=== PATIENT | female | born 1970 | race Caucasian/White ===

== ENCOUNTER 2018-03-03 11:21 | Observation (INO) ==
[2018-03-03 12:40] LABS: Baso # (Auto) 0.1 th/mm3 (0.0-0.2); Baso % (Auto) 0.7 % (0.0-2.0); Eos % (Auto) 0.5 % (0.0-4.0); Hematocrit 43.3 % (35.0-46.0); Hemoglobin 15.1 gm/dL (11.6-15.3); Lymph # (Auto) 1.6 th/mm3 (1.0-4.8); Lymph % (Auto) 20.8 % (9.0-44.0); Mean Corpuscular HGB Conc 34.9 % (32.0-36.0); Mean Corpuscular Hemoglobin 30.7 pg (27.0-34.0); Mean Corpuscular Volume 88.1 fL (80.0-100.0); Mean Platelet Volume 8.1 fL (7.0-11.0); Mono # (Auto) 0.5 th/mm3 (0.0-0.9); Neut # (Auto) 5.4 th/mm3 (1.8-7.7); Platelet Count 264 th/mm3 (150-450); Red Blood Count 4.91 mil/mm3 (4.00-5.30); Red Cell Distribution Width 12.9 % (11.6-17.2); White Blood Count 7.6 th/mm3 (4.0-11.0)
[2018-03-03 12:59] LABS: Alanine Aminotransferase 25 U/L (10-53); Albumin 4.1 g/dL (3.4-5.0); Anion Gap 8 meq/L (5-15); Aspartate Aminotransferase 16 U/L (15-37); Blood Urea Nitrogen 12 mg/dL (7-18); Carbon Dioxide 25.1 meq/L (21.0-32.0); Chloride 105 meq/L (98-107); Glomerular Filtration Rate 61 mL/min (>89); Glucose,Random 99 mg/dL (74-106); Potassium 3.3 meq/L (3.5-5.1); Sodium 138 meq/L (136-145)
[2018-03-03 13:02] LABS: Alkaline Phosphatase 50 U/L (45-117); Total Protein 7.8 g/dL (6.4-8.2)
[2018-03-03 13:14] LABS: Creatine Kinase 43 U/L (26-192)
[2018-03-03] MEDS ORDERED: Sod Chloride 0.9% Inj 1,000 ML IV.SIG ONE (14:56)
[2018-03-03 15:42] LABS: ABG Base Excess -1.5 mmol/L (-2-2); ABG PCO2 30 mmHg (38-42); ABG PO2 110 mmHg (61-120)
[2018-03-03] MEDS: Potassium Chloride Inj 10 MEQ in Sod Chloride 0.9% Inj 1,000 ML IV.CONT SCH ×4 (16:45→22:02)
[2018-03-03 17:02] LABS: Thyroid Stimulating Hormone 1.24 uIU/mL (0.358-3.740)
--- NOTE | 2018-03-03 17:35 | ED ---
HPI General Chief complaint: Weakness Stated complaint: weakness/leg and arm numbness Time Seen by Provider: 03/03/18 14:56 History of Present Illness HPI Narrative: Is a 47-year-old female with a history of pots syndrome/ autonomic syncopal dysfunction, who presents today with complaints of weakness with numbness and tingling to her extremities and face. 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 She states that she became dizzy and dehydrated while performing this class. She states shortly thereafter she had to walk a long distance to get back to her car. She reports being seen down at [facility] physician lucio Coto 2 episodes. The first time they found that she was dehydrated and gave her IV fluids. She states that she still felt weak and "heavy". She states that when she returned, they rechecked her kidney function and found that she was no longer dehydrated. She reports that she still feels this way and is concerned that this may be a return of her pots syndrome. Related Data Home Medications Medication Instructions Recorded Confirmed multivitamin 5 ml PO DAILY 03/03/18 03/03/18 Allergies Allergy/AdvReac Type Severity Reaction Status Date / Time ciprofloxacin Allergy Severe Anaphylaxis Verified 03/03/18 11:32 diphenhydramine Allergy Severe TACHYCARDIA Verified 03/03/18 11:32 Quinolones Allergy Severe AUTONOMIC Verified 03/03/18 13:55 DYSREFLEXIA Review of Systems Except as stated in HPI: all other systems reviewed are negative Constitutional Denies chills and Denies fever(s) Eyes Denies blurry vision and Denies diplopia ENT Reports dry mouth and Denies disequilibrium Cardiovascular Denies chest pain, Reports palpitations and Denies dyspnea Respiratory Denies chest congestion and Denies cough Gastrointestinal Denies abdominal pain, Denies nausea and Denies vomiting Genitourinary Reports system reviewed and no additional complaints, except as docu and Denies dysuria Musculoskeletal Denies limited range of motion, Reports muscle weakness (Generalized), Reports numbness, Reports tingling and Reports other ("Heaviness" to her muscles.) Integumentary/Breasts Reports system reviewed and no additional complaints, except as docu Neurologic Reports as per HPI [facility] Medical History Medical History Endometriosis (Acute) History of hysterectomy (Acute) Hypothyroidism (Acute) Mitral valve prolapse (Acute) Thyroid nodule (Acute) Social History Social History Substance History: No History of Abuse Smoking Status: Never smoker How Often Do You Have a Drink Containing Alcohol: Never Recent Travel in [facility] within the Last 8 Weeks: No Recent Out of Country Travel within the Last 8 Weeks: No Immunization History Tetanus Immunization: <5 Years Hx Influenza Vaccine This Season: No Exam Narrative Exam Narrative: GENERAL: Well-developed well-nourished female who appears anxious in no acute respiratory distress. SKIN: Focused skin assessment warm/dry. HEAD: Atraumatic. Normocephalic. EYES: Pupils equal and round. No scleral icterus. No injection or drainage. ENT: No nasal bleeding or discharge. Mucous membranes pink and moist. NECK: Trachea midline. Supple. CARDIOVASCULAR: Regular rate and rhythm with a rate in 95. No murmur appreciated. RESPIRATORY: No accessory muscle use. Clear to auscultation. Breath sounds equal bilaterally. GASTROINTESTINAL: Abdomen soft, non-tender, nondistended. Hepatic and splenic margins not palpable. MUSCULOSKELETAL: No obvious deformities. No clubbing. No cyanosis. No edema. NEUROLOGICAL: Awake and alert and anxious. No obvious cranial nerve deficits. Motor grossly within normal limits. Normal speech. Course Initial Documented Vital Signs Temperature 98.5 F 03/03/18 11:27 Pulse Rate 78 03/03/18 11:27 Respiratory Rate 18 03/03/18 11:27 Blood Pressure 120/56 L 03/03/18 11:27 Pulse Oximetry 99 03/03/18 11:27 Last Documented Vital Signs Temperature 98.5 F 03/03/18 11:27 Pulse Rate 70 03/03/18 16:00 Respiratory Rate 16 03/03/18 16:00 Blood Pressure 104/55 L 03/03/18 16:00 Pulse Oximetry 100 03/03/18 16:00 Medical Decision Making [facility] Narrative Medical decision making narrative: 47-year-old female with a history of pots syndrome, autonomic dysreflexia, presents here with "heaviness to her muscles". 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 She states she did not hydrate well. She states that she was seen and evaluated at [facility] in the [facility] where they found her to be dehydrated. She reports they gave her 2 L of IV fluids. They discharged her home. She states she returned because she was still feeling symptomatic. At that time they offered to do a CAT scan and further workup and she refused. She is back here again today with the same symptoms. She was noted to be hypokalemic. She has been transfused 2 units/liters of IV fluid with 10 mEq of potassium chloride. Patient still states that she does not feel normal. She is extremely anxious and concerned that this may be recurrence of her autonomic dysreflexia. Given this her third visit in 1 week and no clear etiology of her symptoms, she will be admitted for observation and a neuro consult. The patient does have a neurologist that treated her and diagnosed her autonomic dysreflexia. His partner is acquisitions editor for consultation and will be consulted. Differential Diagnosis Differential Diagnosis: Metabolic derangement versus dehydration versus electrolyte abnormality versus atypical Stout presentation. Lab Data Result diagrams: 03/03/18 12:00 03/03/18 12:00 Lab Results 03/03/18 03/03/18 03/03/18 Range/Units 12:00 12:00 15:30 WBC 7.6 (4.0-11.0) th/mm3 RBC 4.91 (4.00-5.30) mil/mm3 Hgb 15.1 (11.6-15.3) gm/dL Hct 43.3 (35.0-46.0) % MCV 88.1 (80.0-100.0) fL MCH 30.7 (27.0-34.0) pg MCHC 34.9 (32.0-36.0) % RDW 12.9 (11.6-17.2) % Plt Count 264 (150-450) th/mm3 MPV 8.1 (7.0-11.0) fL Neut % (Auto) 71.0 H (16.0-70.0) % Lymph % (Auto) 20.8 (9.0-44.0) % Russell % (Auto) 7.0 (0.0-8.0) % Eos % (Auto) 0.5 (0.0-4.0) % Baso % (Auto) 0.7 (0.0-2.0) % Neut # (Auto) 5.4 (1.8-7.7) th/mm3 Lymph # (Auto) 1.6 (1.0-4.8) th/mm3 Russell # (Auto) 0.5 (0.0-0.9) th/mm3 Eos # (Auto) 0.0 (0.0-0.4) th/mm3 Baso # (Auto) 0.1 (0.0-0.2) th/mm3 WBC Differential . Differential Comment Auto diff final Puncture Site Patient Temperature O2 Saturation (90-100) % ABG pH (7.380-7.420) ABG pCO2 (38-42) mmHg ABG pO2 (61-120) mmHg ABG HCO3 (22-26) mmol/L ABG O2 Content (12.0-20.0) Vol % ABG Base Excess (-2-2) mmol/L ABG Methemoglobin (0-2) % Casper Test Hemoglobin (12.0-16.0) G/DL Carboxyhemoglobin (0-4) % O2 Delivery Device Inspired O2 % Critical Value Sodium 138 (136-145) meq/L Potassium 3.3 L (3.5-5.1) meq/L Chloride 105 (98-107) meq/L Carbon Dioxide 25.1 (21.0-32.0) meq/L Anion Gap 8 (5-15) meq/L BUN 12 (7-18) mg/dL Creatinine 0.98 (0.50-1.00) mg/dL Estimated GFR 61 L (>89) mL/min Random Glucose 99 (74-106) mg/dL Calcium 9.0 (8.5-10.1) mg/dL Total Bilirubin 1.4 H (0.2-1.0) mg/dL AST 16 (15-37) U/L ALT 25 (10-53) U/L Alkaline Phosphatase 50 (45-117) U/L Total Creatine Kinase 43 44 (26-192) U/L Total Protein 7.8 (6.4-8.2) g/dL Albumin 4.1 (3.4-5.0) g/dL TSH 1.240 (0.358-3.740) uIU/mL 03/03/18 Range/Units 15:34 WBC (4.0-11.0) th/mm3 RBC (4.00-5.30) mil/mm3 Hgb (11.6-15.3) gm/dL Hct (35.0-46.0) % MCV (80.0-100.0) fL MCH (27.0-34.0) pg MCHC (32.0-36.0) % RDW (11.6-17.2) % Plt Count (150-450) th/mm3 MPV (7.0-11.0) fL Neut % (Auto) (16.0-70.0) % Lymph % (Auto) (9.0-44.0) % Russell % (Auto) (0.0-8.0) % Eos % (Auto) (0.0-4.0) % Baso % (Auto) (0.0-2.0) % Neut # (Auto) (1.8-7.7) th/mm3 Lymph # (Auto) (1.0-4.8) th/mm3 Russell # (Auto) (0.0-0.9) th/mm3 Eos # (Auto) (0.0-0.4) th/mm3 Baso # (Auto) (0.0-0.2) th/mm3 WBC Differential Differential Comment Puncture Site Right radial Patient Temperature 98.6 O2 Saturation 97 (90-100) % ABG pH 7.47 H (7.380-7.420) ABG pCO2 30 L (38-42) mmHg ABG pO2 110 (61-120) mmHg ABG HCO3 22 (22-26) mmol/L ABG O2 Content 19.8 (12.0-20.0) Vol % ABG Base Excess -1.5 (-2-2) mmol/L ABG Methemoglobin 0.5 (0-2) % Casper Test Present Hemoglobin 14.4 (12.0-16.0) G/DL Carboxyhemoglobin 0.9 (0-4) % O2 Delivery Device Room air Inspired O2 21 % Critical Value No Sodium (136-145) meq/L Potassium (3.5-5.1) meq/L Chloride (98-107) meq/L Carbon Dioxide (21.0-32.0) meq/L Anion Gap (5-15) meq/L BUN (7-18) mg/dL Creatinine (0.50-1.00) mg/dL Estimated GFR (>89) mL/min Random Glucose (74-106) mg/dL Calcium (8.5-10.1) mg/dL Total Bilirubin (0.2-1.0) mg/dL AST (15-37) U/L ALT (10-53) U/L Alkaline Phosphatase (45-117) U/L Total Creatine Kinase (26-192) U/L Total Protein (6.4-8.2) g/dL Albumin (3.4-5.0) g/dL TSH (0.358-3.740) uIU/mL Discharge Plan Discharge Disposition Patient Disposition: 30 Still Patient Discharge Details Diagnosis: Weakness, Hypokalemia, At risk for autonomic dysreflexia Physicians Team ED Provider: Paco Krueger Rxs /Orders / Referrals /Forms Prescriptions: No Action multivitamin Liquid 5 ml PO DAILY RF: 0 Status ED Status: With Doctor
[2018-03-03] MEDS: Sod Chloride 0.9% Inj 1,000 ML IV.CONT SCH (21:04)
--- NOTE | 2018-03-03 23:31 | US ---
EXAM DATE: 03/03/2018 11:23 PM EDT AGE/SEX: 47 years / Female INDICATIONS: Syncope. CLINICAL DATA: This is the patient's initial encounter. Patient reports that signs and symptoms have been present for 1 day and indicates a pain score of 0/10. MEDICAL/SURGICAL HISTORY: Hypothyroidism. Endometriosis. Mitral valve prolapse. Hysterectomy. COMPARISON: No prior exams available for comparison. VELOCITY PARAMETERS: ICA/CCA Ratio: Right 0.9 , Left 1.5 ICA: Right 93 cm/sec, Left 103 cm/sec CCA: Right 109 cm/sec, Left 67 cm/sec ECA: Right 108 cm/sec, Left 86 cm/sec Vertebral: Right 55 cm/sec antegrade, Left 61 cm/sec antegrade FINDINGS: Right Carotid: No significant plaque is visualized.The waveforms are within normal limits. Left Carotid: No significant plaque is visualized. The waveforms are within normal limits. Other: None. CONCLUSION: Negative exam with no plaque or stenosis. Electronically signed by: Leodan Reese MD 03/03/2018 11:30 PM EDT
[2018-03-04] MEDS ORDERED: predniSONE 10 MG Tablet PO ONE (03:54)
[2018-03-04 04:49] LABS: Baso % (Auto) 0.5 % (0.0-2.0); Eos # (Auto) 0.1 th/mm3 (0.0-0.4); Eos % (Auto) 1.5 % (0.0-4.0); Hematocrit 36.1 % (35.0-46.0); Hemoglobin 12.5 gm/dL (11.6-15.3); Lymph # (Auto) 2.6 th/mm3 (1.0-4.8); Lymph % (Auto) 39.4 % (9.0-44.0); Mean Corpuscular HGB Conc 34.6 % (32.0-36.0); Mean Corpuscular Hemoglobin 30.2 pg (27.0-34.0); Mean Corpuscular Volume 87.3 fL (80.0-100.0); Mean Platelet Volume 7.7 fL (7.0-11.0); Mono # (Auto) 0.7 th/mm3 (0.0-0.9); Mono % (Auto) 10.1 % (0.0-8.0); Neut # (Auto) 3.2 th/mm3 (1.8-7.7); Neut % (Auto) 48.5 % (16.0-70.0); Platelet Count 209 th/mm3 (150-450); Red Blood Count 4.13 mil/mm3 (4.00-5.30); Red Cell Distribution Width 12.5 % (11.6-17.2); White Blood Count 6.5 th/mm3 (4.0-11.0)
[2018-03-04 05:24] LABS: Calcium 7.5 mg/dL (8.5-10.1); Carbon Dioxide 21.1 meq/L (21.0-32.0); Potassium 3.8 meq/L (3.5-5.1); Thyroid Stimulating Hormone 2.16 uIU/mL (0.358-3.740)
[2018-03-04 08:22] LABS: Amphetamine Screen,Urine Neg (Neg); Barbiturate Screen,Urine Neg (Neg); Cannabinoid Screen,Urine Neg (Neg); Cocaine Screen,Urine Neg (Neg)
[2018-03-04 08:24] LABS: Opiate Screen,Urine Neg (Neg)
--- NOTE | 2018-03-04 08:52 | ECG ---
Date Performed: 03/03/2018 Time Performed: 11:44:15 PTAGE: 47 years EKG: Sinus rhythm POSSIBLE RIGHT VENTRICULAR CONDUCTION DELAY SEPTAL MYOCARDIAL INFARCTION ABNORMAL ECG NO PREVIOUS TRACING DOCTOR: Rom Zapata Interpretating Date/Time 03/04/2018 08:50:59
[2018-03-04] MEDS: Sod Chloride 0.9% Inj 1,000 ML IV.CONT SCH ×2 (09:17→18:05)
--- NOTE | 2018-03-04 15:24 | ECHRPT ---
Indication: cva/tia CONCLUSIONS The left ventricular systolic function is normal with an estimated ejection fraction in the range of 60-65%. Normal left ventricular size. Wall thickness is normal. No regional wall motion abnormalities are present. Trivial pulmonary valve regurgitation. BP: / HR: Rhythm: Sinus Technical Quality:Good FINDINGS LEFT VENTRICLE The left ventricular systolic function is normal with an estimated ejection fraction in the range of 60-65%. Normal left ventricular size. Wall thickness is normal. No regional wall motion abnormalities are present. RIGHT VENTRICLE Normal right ventricular size and systolic function. LEFT ATRIUM The left atrial size is normal. RIGHT ATRIUM The right atrial size is normal. ATRIAL SEPTUM Normal atrial septal thickness without atrial level shunting by limited color doppler interrogation. AORTA The aortic root and proximal ascending aorta are normal in size on limited imaging. MITRAL VALVE Structurally normal mitral valve. No mitral valve stenosis or regurgitation. AORTIC VALVE Trileaflet aortic valve. No aortic valve stenosis or regurgitation. TRICUSPID VALVE Structurally normal tricuspid valve. No tricuspid valve stenosis or regurgitation. PULMONARY VALVE Trivial pulmonary valve regurgitation. VESSELS The inferior vena cava is normal in size. PERICARDIUM No pericardial effusion. Malinda Lou MD, FACC (Electronically Signed) Final Date:04 March 2018 15:23
[2018-03-04] MEDS ORDERED: Baclofen 10 MG Tablet PO ONE (15:33)
--- NOTE | 2018-03-04 15:33 | P.HP ---
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 Worried about the she may have had pots syndrome again. States that she has pots syndrome before from taking antibiotics Levaqjose luis Cipro and has followed Dr. Briseno in the outpatient. States that he took some time for the symptoms to have resolved and now worried about having almost the same symptom. Discussed with patient that sometimes pots syndrome can occur with hypovolemia, dehydration and she has experienced. Patient states that she has thyroid nodule in is afraid of doing a CAT scan of her head that she refused it yesterday. Patient also states that she has been doing holistic medication and doing organic food intake and the only medication she has for home is multivitamins. Denies visual changes. However she reports that when she was outside in the numbness and tingling happened she has been seeing park in her eyes and had blurry vision. States that her vision right now is okay. Denies pain and discomfort. Denies SOB/ dyspnea. Denies chest pain, palpitations, headaches. Denies fevers, chills, n/v/d. Denies hematuria, dysuria. - Diagnosis (1) Weakness (2) Hypokalemia (3) At risk for autonomic dysreflexia Review of Systems All other systems reviewed negative except as stated in HPI [facility] - History History Provided By: Patient - Medical History Medical History: Medical History (Last Reviewed 03/04/18 @ 17:31 by Emy Boone PT) Endometriosis History of hysterectomy Hypothyroidism Mitral valve prolapse Thyroid nodule - Surgical History Surgical History: Surgical History (Last Updated 03/04/18 @ 18:18 by KIRSTEN Cheema) History of hysterectomy - Family History Family History: Family History (Last Updated 03/04/18 @ 18:19 by KIRSTEN Cheema) Mother Heart disease - Tobacco History Second Hand Smoke Exposure: No Smoking Status: Never smoker - Alcohol History How Often Do You Have a Drink Containing Alcohol: Never - Substance Use History Substance History: No History of Abuse - Travel History Recent Travel in the [place] Within the Last 8 Weeks: No Recent Travel Out of the Country Within the Last 8 Weeks: No - Immunization History Tetanus Immunization: <5 Years Hx Influenza Vaccine This Season: No Medications and Allergies Active Medications: Active Medications Sodium Chloride (Ns Inj) 1,000 mls @ 100 mls/hr IV.CONT .Q10H ESTEPHANIE Last Admin: 03/04/18 09:17 Dose: 100 mls/hr Allergies Allergy/AdvReac Type Severity Reaction Status Date / Time ciprofloxacin Allergy Severe Anaphylaxis Verified 03/03/18 11:32 diphenhydramine Allergy Severe TACHYCARDIA Verified 03/03/18 11:32 Quinolones Allergy Severe AUTONOMIC Verified 03/03/18 13:55 DYSREFLEXIA Home Medications Medication Instructions Recorded Confirmed Type multivitamin 5 ml PO DAILY 03/03/18 03/03/18 History Exam Vital signs: Vital Signs 03/03/18 16:00 03/03/18 22:10 03/03/18 22:28 Temperature 98.0 F Pulse Rate 70 73 69 Respiratory Rate 16 16 Blood Pressure 104/55 L 85/52 L 99/55 L Pulse Oximetry 100 99 03/03/18 22:36 03/04/18 00:27 03/04/18 03:43 Temperature 98.7 F Pulse Rate 78 66 Respiratory Rate 16 Blood Pressure 107/52 L 87/48 L Pulse Oximetry 100 03/04/18 08:00 03/04/18 08:03 03/04/18 08:04 Temperature 97.9 F Pulse Rate 74 79 78 Respiratory Rate 16 Blood Pressure 111/56 L 117/56 L 98/53 L Pulse Oximetry 100 03/04/18 11:57 03/04/18 11:59 03/04/18 12:00 Temperature 98.1 F Pulse Rate 75 85 92 H Respiratory Rate 16 Blood Pressure 101/58 L 100/57 L 108/55 L Pulse Oximetry 98 Intake & Output 03/03/18 03/04/18 03/04/18 18:59 06:59 18:59 Intake Total 1000 / 1000 1005 / 1005 1000 / 1000 Balance 1000 / 1000 1005 / 1005 1000 / 1000 Weight 59.874 kg 59.874 kg Intake: IV 1000 / 1000 1005 / 1005 1000 / 1000 KCl Inj 10 MEQ In NS Inj 1,000 1005 / 1005 ML @ 500 mls/hr IV.CONT .Q2H1M ESTEPHANIE Rx#:[id number] NS Inj 1,000 ML @ 100 mls/hr IV 1000 / 1000 .CONT .Q10H ESTEPHANIE Rx#:[id number] NS Inj 1,000 ML @ Wide Open IV. 1000 / 1000 SIG BOLUS ONE Rx#:[id number] Other: Date of Last Bowel Movement 03/03/18 Weight On Admission 59.874 kg Narrative: GENERAL: This is a well-nourished, well-developed patient, in no apparent distress. SKIN: Warm and dry HEENT: Normocephalic. Pupils equal round and reactive. Nose without bleeding. Airway patent. NECK: Trachea midline. No JVD. Supple. CARDIOVASCULAR: Regular rate and rhythm without murmurs, gallops, or rubs. RESPIRATORY: Clear to auscultation. Breath sounds equal bilaterally. No wheezes , rales, or rhonchi. GASTROINTESTINAL: Abdomen soft, non-tender, nondistended. Bowel Sounds normoactive x4. MUSCULOSKELETAL: Extremities without clubbing, cyanosis, or edema. NEUROLOGICAL: Awake and alert. Oriented to time, place, person. No focal neuro deficit. Cranial nerves intact. Moves all extremities. Normal speech. Results - Labs CBC & Chem 7: 03/04/18 04:30 03/04/18 04:30 Labs: Laboratory Results - last 24 hr 03/03/18 03/03/18 03/04/18 15:30 15:34 04:30 WBC RBC Hgb Hct MCV MCH MCHC RDW Plt Count MPV Neut % (Auto) Lymph % (Auto) Mccone % (Auto) Eos % (Auto) Baso % (Auto) Neut # (Auto) Lymph # (Auto) Mccone # (Auto) Eos # (Auto) Baso # (Auto) WBC Differential Differential Comment Puncture Site Right radial Patient Temperature 98.6 O2 Saturation 97 ABG pH 7.47 H ABG pCO2 30 L ABG pO2 110 ABG HCO3 22 ABG O2 Content 19.8 ABG Base Excess -1.5 ABG Methemoglobin 0.5 Casper Test Present Hemoglobin 14.4 Carboxyhemoglobin 0.9 O2 Delivery Device Room air Inspired O2 21 Critical Value No Sodium 143 Potassium 3.8 Chloride 114 H D Carbon Dioxide 21.1 Anion Gap 8 BUN 11 Creatinine 0.77 Estimated GFR 81 L Random Glucose 82 Calcium 7.5 L D Total Creatine Kinase 44 TSH 1.240 2.160 Cortisol Urine Opiates Screen Ur Barbiturates Screen Ur Amphetamines Screen U Benzodiazepines Scrn Urine Cocaine Screen U Cannabinoids Screen 03/04/18 03/04/18 03/04/18 04:30 04:30 07:53 WBC 6.5 RBC 4.13 Hgb 12.5 D Hct 36.1 MCV 87.3 MCH 30.2 MCHC 34.6 RDW 12.5 Plt Count 209 MPV 7.7 Neut % (Auto) 48.5 Lymph % (Auto) 39.4 Mccone % (Auto) 10.1 H Eos % (Auto) 1.5 Baso % (Auto) 0.5 Neut # (Auto) 3.2 Lymph # (Auto) 2.6 Mccone # (Auto) 0.7 Eos # (Auto) 0.1 Baso # (Auto) 0.0 WBC Differential . Differential Comment Auto diff final Puncture Site Patient Temperature O2 Saturation ABG pH ABG pCO2 ABG pO2 ABG HCO3 ABG O2 Content ABG Base Excess ABG Methemoglobin Casper Test Hemoglobin Carboxyhemoglobin O2 Delivery Device Inspired O2 Critical Value Sodium Potassium Chloride Carbon Dioxide Anion Gap BUN Creatinine Estimated GFR Random Glucose Calcium Total Creatine Kinase TSH Cortisol 17.4 Urine Opiates Screen Neg Ur Barbiturates Screen Neg Ur Amphetamines Screen Neg U Benzodiazepines Scrn Neg Urine Cocaine Screen Neg U Cannabinoids Screen Neg - Imaging Impressions Carotid Doppler Study 03/03/18 00:00 CONCLUSION: Negative exam with no plaque or stenosis. Caprini VTE Risk Assessment Caprini VTE Risk Assessment: No/Low Risk (score <= 1) Caprini Risk Assessment Model: Point Value = 1 Point Value = 2 Point Value = 3 Point Value = 5 Age 41-60 Minor surgery BMI > 25 kg/m2 Swollen legs Varicose veins or History of unexplained or recurrent spontaneous Oral contraceptives or hormone replacement Sepsis (< 1 month) Serious lung disease, including pneumonia (< 1 month) Abnormal pulmonary function Acute myocardial infarction Congestive heart failure (< 1 month) History of inflammatory bowel disease Medical patient at bed rest Age 61-74 Arthroscopic surgery Major open surgery (> 45 min) Laparoscopic surgery (> 45 min) Malignancy Confined to bed (> 72 hours) Immobilizing plaster cast Central venous access Age >= 75 History of VTE Family history of VTE Factor V Leiden Prothrombin [id number] Lupus anticoagulant Anticardiolipin antibodies Elevated serum homocysteine Heparin-induced thrombocytopenia Other congenital or acquired thrombophilia Stroke (< 1 month) Elective arthroplasty Hip, pelvis, or leg fracture Acute spinal cord injury (< 1 month) Prophylaxis Regimen: Total Risk Factor Score Risk Level Prophylaxis Regimen 0-1 Low Early ambulation 2 Moderate Order ONE of the following: *Sequential Compression Device (SCD) *Heparin 5000 units SQ BID 3-4 Higher Order ONE of the following medications: *Heparin 5000 units SQ TID *Enoxaparin/Lovenox 40 mg SQ daily (WT < 150 kg, CrCl > 30 mL/min) *Enoxaparin/Lovenox 30 mg SQ daily (WT < 150 kg, CrCl > 10-29 mL/min) *Enoxaparin/Lovenox 30 mg SQ BID (WT < 150 kg, CrCl > 30 mL/min) AND/OR *Sequential Compression Device (SCD) 5 or more Highest Order ONE of the following medications: *Heparin 5000 units SQ TID (Preferred with Epidurals) *Enoxaparin/Lovenox 40 mg SQ daily (WT < 150 kg, CrCl > 30 mL/min) *Enoxaparin/Lovenox 30 mg SQ daily (WT < 150 kg, CrCl > 10-29 mL/min) *Enoxaparin/Lovenox 30 mg SQ BID (WT < 150 kg, CrCl > 30 mL/min) AND *Sequential Compression Device (SCD) Assessment and Plan - Assessment (1) Weakness Code(s): R53.1 - Weakness Status: Acute (2) Hypokalemia Code(s): E87.6 - Hypokalemia Status: Acute (3) At risk for autonomic dysreflexia Code(s): Z91.89 - Other specified personal risk factors, not elsewhere classified Status: Acute - Plan 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 Autonomic disorder, pots syndrome history Dehydration, hypokalemia -IV fluids for hydration -Repeat labs reviewed within normal, CK 43 to 44 -Check hemoglobin A1c -Bili elevated 1.4, AST and ALT within normal -TSH within normal, cortisol level within normal -Protein and albumin within normal -echocardiogram showed LV function within normal EF 60-65% -Carotid ultrasound negative exam with no plaques or stenosis -PT eval and treat -Extensively with patient that if lab results and under exam is normal tomorrow plan for discharge and follow-up with Dr. Briseno in the outpatient if she continues to have numbness or tingling for evaluation of nerve dysfunction. -Suspect that this is just secondary to exercising in the heat, combination with dehydration, hypokalemia DVT prop early ambulation Code Status: Full code Discussed Condition With: Patient, , nursing Discharge Planning: Plan to DC home tomorrow if everything is improved.
[2018-03-04] MEDS ORDERED: LORazepam 0.5 MG Tablet PO ONE (15:43)
[2018-03-04 16:45] LABS: Bilirubin,Urine Negative (Negative); Clarity,Urine Clear (Clear); Color,Urine Colorless (Yellw/Straw); Glucose,Urine (UA) Negative (Negative); Leukocyte Esterase,Urine Negative (Negative); Nitrite,Urine Negative (Negative); Specific Gravity,Urine 1.006 (1.002-1.035); Squamous Epithelial Cell,Urine <1 /hpf (0-5)
[2018-03-04 18:45] LABS: Hemoglobin A1c 4.5 % (4.3-6.0)
[2018-03-04] MEDS: Sodium Chloride 0.45 % Inj 1,000 ML IV.CONT SCH (18:45)
[2018-03-04 22:23] LABS: Potassium 3.2 meq/L (3.5-5.1)
[2018-03-04 23:29] LABS: Magnesium 1.5 mg/dL (1.5-2.5)
[2018-03-05 04:28] VITALS: O2SAT 100
[2018-03-05] MEDS: Sodium Chloride 0.45 % Inj 1,000 ML IV.CONT SCH (04:40)
[2018-03-05 06:27] LABS: Baso % (Auto) 0.5 % (0.0-2.0); Eos # (Auto) 0.1 th/mm3 (0.0-0.4); Eos % (Auto) 1.4 % (0.0-4.0); Hematocrit 37.7 % (35.0-46.0); Hemoglobin 13.4 gm/dL (11.6-15.3); Lymph # (Auto) 1.8 th/mm3 (1.0-4.8); Lymph % (Auto) 32.8 % (9.0-44.0); Mean Corpuscular HGB Conc 35.4 % (32.0-36.0); Mean Corpuscular Hemoglobin 30.8 pg (27.0-34.0); Mono # (Auto) 0.6 th/mm3 (0.0-0.9); Mono % (Auto) 10.9 % (0.0-8.0); Neut % (Auto) 54.4 % (16.0-70.0); Platelet Count 229 th/mm3 (150-450); Red Blood Count 4.34 mil/mm3 (4.00-5.30); Red Cell Distribution Width 12.5 % (11.6-17.2); White Blood Count 5.6 th/mm3 (4.0-11.0)
[2018-03-05 07:07] LABS: Alanine Aminotransferase 20 U/L (10-53); Albumin 3.3 g/dL (3.4-5.0); Alkaline Phosphatase 39 U/L (45-117); Anion Gap 5 meq/L (5-15); Aspartate Aminotransferase 11 U/L (15-37); Blood Urea Nitrogen 10 mg/dL (7-18); Calcium 8.5 mg/dL (8.5-10.1); Carbon Dioxide 28.3 meq/L (21.0-32.0); Chloride 109 meq/L (98-107); Glomerular Filtration Rate 69 mL/min (>89); Glucose,Random 91 mg/dL (74-106); Magnesium 1.9 mg/dL (1.5-2.5); Potassium 3.8 meq/L (3.5-5.1); Sodium 142 meq/L (136-145); Total Protein 6.3 g/dL (6.4-8.2)
--- NOTE | 2018-03-05 08:04 | P.DS ---
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 Worried about the she may have had pots syndrome again. 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 Briseno in the outpatient. States that he took some time for the symptoms to have resolved and now worried about having almost the same symptom. Discussed with patient that sometimes pots syndrome can occur with hypovolemia, dehydration and she has experienced. Patient states that she has thyroid nodule in is afraid of doing a CAT scan of her head that she refused it yesterday. Patient also states that she has been doing holistic medication and doing organic food intake and the only medication she has for home is multivitamins. Denies visual changes. However she reports that when she was outside in the numbness and tingling happened she has been seeing park in her eyes and had blurry vision. States that her vision right now is okay. Denies pain and discomfort. Denies SOB/ dyspnea. Denies chest pain, palpitations, headaches. Denies fevers, chills, n/v/d. Denies hematuria, dysuria. 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 Patient found to have hypokalemia. This is possibly secondary to dehydration as she reports that she was exercising under the sun and has not hydrated well. She was concerned about returning of pots syndrome. Discussed extensively with patient hypovolemia could trigger pots syndrome however we have tested her for orthostatics and it was doing okay. Her labs are within normal except for hypokalemia which were replaced during her hospitalization. She had IV fluids for hydration. Her CK was reviewed and was normal, TSH was within normal, cortisol level within normal. Magnesium is also within normal. Hemoglobin A1c was 4.5. Echocardiogram showed LV function within normal EF 60-65%. Carotid ultrasound negative exam with no plaques or stenosis. Discussed extensively with patient that she will be discharged and can follow up with Dr. Briseno in the outpatient whom he previously has seen for pots syndrome if the numbness and tingling of her face and her lower extremity continues. She is ambulating in the hallway. Physical therapy has evaluated the patient does not recommend any rehabilitation for her. Discussed extensively with the patient that she would need to hydrate well when she is exercising she could have fluid and electrolyte imbalance causing her to feel weak, with numbness and tingling. Patient has met maximal benefits of hospitalization. Clinically stable for discharge. - Time Spent with Patient Total time spent providing and/or coordinating discharge services: Less than 30 minutes - Quality: VTE Deep Vein Thrombosis/Pulmonary Embolism Present on Admission: No Exam Vital signs: Vital Signs 03/04/18 11:57 03/04/18 11:59 03/04/18 12:00 Temperature 98.1 F Pulse Rate 75 85 92 H Respiratory Rate 16 Blood Pressure 101/58 L 100/57 L 108/55 L Pulse Oximetry 98 03/04/18 16:00 03/04/18 20:00 03/04/18 23:24 Temperature 97.9 F 97.9 F 98.0 F Pulse Rate 71 84 74 Respiratory Rate 16 18 16 Blood Pressure 113/55 L 124/56 L 107/56 L Pulse Oximetry 99 98 97 03/05/18 04:00 Temperature 97.5 F L Pulse Rate 67 Respiratory Rate 16 Blood Pressure 96/54 L Pulse Oximetry 100 Intake & Output 03/04/18 03/05/18 03/05/18 18:59 06:59 18:59 Intake Total 2049 0 / 0 Balance 2049 0 / 0 Intake: IV 2049 0 / 0 NS Inj 1,000 ML @ 100 mls/hr IV 2049 .CONT .Q10H [facility] Rx#:[id number] 1/2 Normal Saline Inj 1,000 ML 0 / 0 @ 100 mls/hr IV.CONT .Q10H [facility] Rx#:[id number] Other: # Voids 5 Date of Last Bowel Movement 03/03/18 03/03/18 # Bowel Movements 0 Narrative: GENERAL: This is a well-nourished, well-developed patient, in no apparent distress. SKIN: Warm and dry HEENT: Normocephalic. Pupils equal round and reactive. Nose without bleeding. Airway patent. NECK: Trachea midline. No JVD. Supple. CARDIOVASCULAR: Regular rate and rhythm without murmurs, gallops, or rubs. RESPIRATORY: Clear to auscultation. Breath sounds equal bilaterally. No wheezes , rales, or rhonchi. GASTROINTESTINAL: Abdomen soft, non-tender, nondistended. Bowel Sounds normoactive x4. MUSCULOSKELETAL: Extremities without clubbing, cyanosis, or edema. NEUROLOGICAL: Awake and alert. Oriented to time, place, person. No focal neuro deficit. Cranial nerves intact. Moves all extremities. Normal Results Procedures completed during hospitalization: none Labs on day of discharge: Labs from last 24 hours 03/05/18 03/05/18 03/04/18 05:34 05:34 21:52 WBC 5.6 RBC 4.34 Hgb 13.4 Hct 37.7 MCV 87.0 MCH 30.8 MCHC 35.4 RDW 12.5 Plt Count 229 MPV 8.0 Neut % (Auto) 54.4 Lymph % (Auto) 32.8 [place] % (Auto) 10.9 H Eos % (Auto) 1.4 Baso % (Auto) 0.5 Neut # (Auto) 3.0 Lymph # (Auto) 1.8 [place] # (Auto) 0.6 Eos # (Auto) 0.1 Baso # (Auto) 0.0 WBC Differential . Differential Comment Auto diff final Sodium 142 Potassium 3.8 Chloride 109 H Carbon Dioxide 28.3 Anion Gap 5 BUN 10 Creatinine 0.88 Estimated GFR 69 L Random Glucose 91 Hemoglobin A1c Calcium 8.5 D Magnesium 1.9 Cancelled Total Bilirubin 0.6 AST 11 L ALT 20 Alkaline Phosphatase 39 L Creatine Kinase CK-MM (CK-3) % CK-MB (CK-2) % CK-BB (CK-1) % Total Protein 6.3 L D Albumin 3.3 L D Urine Color Urine Clarity Urine pH Ur Specific [place] Urine Protein Urine Glucose (UA) Urine Ketones Urine Occult Blood Urine Nitrate Urine Bilirubin Urine Urobilinogen Ur Leukocyte Esterase Ur Squamous Epith Cells Micro UA Comment Urine Culture Comments Urine Opiates Screen Ur Barbiturates Screen Ur Amphetamines Screen U Benzodiazepines Scrn Urine Cocaine Screen U Cannabinoids Screen 03/04/18 03/04/18 03/04/18 21:52 17:15 16:48 WBC RBC Hgb Hct MCV MCH MCHC RDW Plt Count MPV Neut % (Auto) Lymph % (Auto) [place] % (Auto) Eos % (Auto) Baso % (Auto) Neut # (Auto) Lymph # (Auto) [place] # (Auto) Eos # (Auto) Baso # (Auto) WBC Differential Differential Comment Sodium Potassium 3.2 L Chloride Carbon Dioxide Anion Gap BUN Creatinine Estimated GFR Random Glucose Hemoglobin A1c 4.5 Calcium Magnesium 1.5 Total Bilirubin AST ALT Alkaline Phosphatase Creatine Kinase Pending CK-MM (CK-3) % Pending CK-MB (CK-2) % Pending CK-BB (CK-1) % Pending Total Protein Albumin Urine Color Urine Clarity Urine pH Ur Specific [place] Urine Protein Urine Glucose (UA) Urine Ketones Urine Occult Blood Urine Nitrate Urine Bilirubin Urine Urobilinogen Ur Leukocyte Esterase Ur Squamous Epith Cells Micro UA Comment Urine Culture Comments Urine Opiates Screen Ur Barbiturates Screen Ur Amphetamines Screen U Benzodiazepines Scrn Urine Cocaine Screen U Cannabinoids Screen 03/04/18 03/04/18 15:30 07:53 WBC RBC Hgb Hct MCV MCH MCHC RDW Plt Count MPV Neut % (Auto) Lymph % (Auto) [place] % (Auto) Eos % (Auto) Baso % (Auto) Neut # (Auto) Lymph # (Auto) [place] # (Auto) Eos # (Auto) Baso # (Auto) WBC Differential Differential Comment Sodium Potassium Chloride Carbon Dioxide Anion Gap BUN Creatinine Estimated GFR Random Glucose Hemoglobin A1c Calcium Magnesium Total Bilirubin AST ALT Alkaline Phosphatase Creatine Kinase CK-MM (CK-3) % CK-MB (CK-2) % CK-BB (CK-1) % Total Protein Albumin Urine Color Colorless Urine Clarity Clear Urine pH 7.0 Ur Specific [place] 1.006 Urine Protein Negative Urine Glucose (UA) Negative Urine Ketones Negative Urine Occult Blood Small H Urine Nitrate Negative Urine Bilirubin Negative Urine Urobilinogen Less than 2 Ur Leukocyte Esterase Negative Ur Squamous Epith Cells <1 Micro UA Comment Culture not ind Urine Culture Comments Culture not ind Urine Opiates Screen Neg Ur Barbiturates Screen Neg Ur Amphetamines Screen Neg U Benzodiazepines Scrn Neg Urine Cocaine Screen Neg U Cannabinoids Screen Neg - Impressions ITS Impressions Carotid Doppler Study 03/03/18 00:00 CONCLUSION: Negative exam with no plaque or stenosis. Discharge Plan - Discharge Disposition Patient Disposition: 01 Discharge Home - Discharge Condition Condition: Stable - Discharge Order Discharge Orders: Discharge Order (Routine); Ordered 03/05/18 Ordered By: Wilda Coombs - Physicians Team Attending Provider: Adrian Diez
[2018-03-05] MEDS ORDERED: Magnesium Citrate Liq 300 ML Bottle PO ONE (08:33)
[2018-03-05 08:45] VITALS: BP 104/61; PULSE 70; RESP 18; TEMP 98.1
[2018-03-10 17:54] LABS: CK-MB ND (<5); CK-MM ND (95-100)
== END 2018-03-05 10:36 | disposition home or self-care (01) ==
LOC: NEPC 11:21 → NEDA 11:21 → NEPGCP 11:21
PROVIDERS: ADMIT Hospitalist; ATTEND Hospitalist

== ENCOUNTER 2018-03-11 03:10 | Observation (INO) ==
[2018-03-11] MEDS ORDERED: Sodium Chlor 0.9% Inj 500 ML IV.SIG ONE (03:37)
[2018-03-11 04:03] LABS: Baso # (Auto) 0.1 th/mm3 (0.0-0.2); Baso % (Auto) 0.8 % (0.0-2.0); Eos # (Auto) 0.1 th/mm3 (0.0-0.4); Eos % (Auto) 1.3 % (0.0-4.0); Hematocrit 38.2 % (35.0-46.0); Hemoglobin 13.4 gm/dL (11.6-15.3); Lymph # (Auto) 1.6 th/mm3 (1.0-4.8); Mean Corpuscular Hemoglobin 30.5 pg (27.0-34.0); Mean Corpuscular Volume 87.1 fL (80.0-100.0); Mono # (Auto) 0.5 th/mm3 (0.0-0.9); Mono % (Auto) 7.4 % (0.0-8.0); Neut % (Auto) 68.5 % (16.0-70.0); Platelet Count 229 th/mm3 (150-450); Red Blood Count 4.39 mil/mm3 (4.00-5.30); Red Cell Distribution Width 12.6 % (11.6-17.2); White Blood Count 7.3 th/mm3 (4.0-11.0)
--- NOTE | 2018-03-11 04:10 | ED ---
HPI General Chief complaint: Chest Pain Stated complaint: Pain/Evac Fire Time Seen by Provider: 03/11/18 03:37 Source: patient and EMS Mode of arrival: EMS Limitations: no limitations History of Present Illness HPI narrative: The patient is a 47 year old female who presents to the [facility] emergency department with a history of back pain just medial to the mid aspect of the left scapula that suddenly began while she was lying down considering getting up from bed to go to the bathroom. The patient reports that the pain was initially sharp in character. She reports that it then began to radiate up into her neck and was causing a fullness sensation into her throat and up into the right side of her jaw. The patient reports that she checked her pulse and it was noted to be 143. She reports that the symptoms became worse with standing. She reports that they lasted for a few minutes and then resolved. She reports that they then recurred later when she was lying down. She reports that this time it lasted for 10-15 minutes. At that point she called the ambulance services. The patient reports that the pain is now again resolved. She denies having any shortness of breath. She reports having intermittent nausea. She denies having any vomiting. The patient's recent history has been complicated over the last 2-1/2 weeks related to recurrent numbness, tingling, weakness of her extremities it seems to be coming and going. She was admitted to the hospital related to this on March 03, 2018. The patient refused to have a CT scan of the brain done due to concern about radiation and free radicals. The patient had reported similar symptoms in the past related to POTS syndrome. She reports that she was followed by as an outpatient for this. It was thought to be related to complications from fluoroquinolone use years ago. 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 The patient reports that she did follow-up with her primary care physician this past and has another appointment scheduled for this week on . She reports that she has not been referred back to the neurologist yet. She reports that this is the first time that she has had a pain like this in her back that radiated up into her neck and jaw. She denies ever having a stress test done previously. She denies having any lower extremity edema, calf pain, or erythema. She denies having any prior history of DVT or PE. On review of systems otherwise, the patient denies having any known fevers, however she reports having intermittent night sweats. She denies having any cough or congestion, new abdominal pain, new diarrhea, urinary symptoms, or other neurologic symptoms. The patient reports that she intermittently does have abdominal cramping and pain as well as diarrhea related to a diagnosis of irritable bowel syndrome. Last menstrual cycle: Status post hysterectomy Related Data Home Medications Medication Instructions Recorded Confirmed multivitamin 5 ml PO DAILY 03/03/18 03/11/18 Allergies Allergy/AdvReac Type Severity Reaction Status Date / Time ciprofloxacin Allergy Severe Anaphylaxis Verified 03/11/18 03:39 diphenhydramine Allergy Severe TACHYCARDIA Verified 03/11/18 03:39 Quinolones Allergy Severe AUTONOMIC Verified 03/11/18 03:39 DYSREFLEXIA Review of Systems ROS Unobtainable All other systems reviewed negative except as stated in [facility] Medical History Medical History Irritable bowel syndrome (Acute) Neuropathy (Acute) Postural orthostatic tachycardia syndrome (Acute) Endometriosis (Acute) Hypothyroidism (Acute) Mitral valve prolapse (Acute) Thyroid nodule (Acute) Surgical History Surgical History History of hysterectomy (Acute) Family History Family History Mother Heart disease Social History Social History Substance History: No History of Abuse Second Hand Smoke Exposure: No Smoking Status: Never smoker How Often Do You Have a Drink Containing Alcohol: Never Recent Travel in [facility] within the Last 8 Weeks: No Immunization History Tetanus Immunization: Unsure Exam Const General: cooperative, no acute distress and well developed Nutritional Appearance: well nourished Orientation: alert, awake and oriented x3 HENMT Head: normocephalic and atraumatic Nose: no nasal discharge and no epistaxis Mouth: moist mucous membranes Eyes Sclera: normal sclerae Pupils: PERRL Neck Neck: trachea midline and no JVD Resp Effort & Inspection: no use of accessory muscles Auscultation: clear to auscultation bilaterally Cardio Rate: regular rate Rhythm: regular rhythm Heart Sounds: no murmurs GI Inspection: non-distended Palpation: soft, no hepatosplenomegaly and nontender Skin General: dry skin (warm) Neuro General: alert, awake and oriented x3 Cranial Nerves: other (No facial asymmetry noted.) Speech: speech normal Motor: strength 5/5 throughout and no movement abnormalities noted Sensory Exam: no sensory deficits noted Extrem General: normal to inspection, no clubbing, no cyanosis and no edema Psych Mood: congruent mood Affect: normal affect Judgment: judgment good Course Initial Documented Vital Signs Temperature 98.2 F 03/11/18 03:25 Pulse Rate 80 03/11/18 03:25 Respiratory Rate 16 03/11/18 03:25 Blood Pressure 123/60 03/11/18 03:25 Pulse Oximetry 100 03/11/18 03:25 Last Documented Vital Signs Temperature 98.2 F 03/11/18 03:25 Pulse Rate 80 03/11/18 03:25 Respiratory Rate 16 03/11/18 03:25 Blood Pressure 123/60 03/11/18 03:25 Pulse Oximetry 100 03/11/18 03:[address] [facility] Narrative Medical decision making narrative: During the course of the patient's emergency department visit, the patient's history, examination, and differential diagnosis were reviewed with the patient. The patient was placed on a cafeteria monitor with oximetry and frequent blood pressure monitoring. The patient had IV access obtained and blood work sent for analysis. A diagnostic evaluation was started regarding the patient's chest pain radiating to the neck. The patient was initially provided normal saline at 500 mL bolus 1. The patient was given aspirin 324 mg p.o. 1. Diagnostic evaluation is remarkable for a white count of 7.3, hemoglobin of 13.4PT PTT within normal limits, d-dimer is 0.27 decreasing the likelihood of pulmonary embolism in this patient with no other significant risk factors., platelets of 229 with a normal differential, the patient refused to have a chest x-ray done due to concern due to concern about radiation in spite of further discussion that she could have an underlying pneumothorax or pneumonia. Chemistries remarkable for a troponin I of less than 0.02, total protein 6.3, GFR 69, chloride 110, calcium 7.7, magnesium is 2.0, potassium is within normal limits at 3.7, AST is 13, alk phos 38. The patient did have a TSH previously on March 04 that was within normal limits at 2.16, therefore this was not repeated. The patient also underwent a urinalysis first that was unremarkable, therefore this was also not repeated. Given the patient's new chest pain radiating up into the neck, the patient will be admitted to the chest pain center for rule out serial cardiac enzyme protocol followed by consideration of stress testing. The patient's results were discussed with the patient, including the plan of care. I explained that further testing and/ or monitoring is indicated based on the patient's history, examination, and/ or laboratory findings. Therefore, I recommended admission for additional evaluation. The patient expressed understanding and was agreeable with this plan. The patient was admitted to the hospital in stable condition and sent to a bed under the care of the [facility]. Differential Diagnosis Differential Diagnosis: Pneumothorax, versus pneumonia, versus acute coronary syndrome, versus pulmonary embolism, versus anxiety disorder, versus acid reflux Medical Records Medical records reviewed: Yes I reviewed the patient's medical records. Lab Data Lab results reviewed: Yes I reviewed the patient's lab results. Result diagrams: 03/11/18 03:40 03/11/18 03:40 Lab Results 03/11/18 03/11/18 03/11/18 Range/Units 03:40 03:40 03:40 WBC 7.3 (4.0-11.0) th/mm3 RBC 4.39 (4.00-5.30) mil/mm3 Hgb 13.4 (11.6-15.3) gm/dL Hct 38.2 (35.0-46.0) % MCV 87.1 (80.0-100.0) fL MCH 30.5 (27.0-34.0) pg MCHC 35.0 (32.0-36.0) % RDW 12.6 (11.6-17.2) % Plt Count 229 (150-450) th/mm3 MPV 8.0 (7.0-11.0) fL Neut % (Auto) 68.5 (16.0-70.0) % Lymph % (Auto) 22.0 (9.0-44.0) % [place] % (Auto) 7.4 (0.0-8.0) % Eos % (Auto) 1.3 (0.0-4.0) % Baso % (Auto) 0.8 (0.0-2.0) % Neut # (Auto) 5.0 (1.8-7.7) th/mm3 Lymph # (Auto) 1.6 (1.0-4.8) th/mm3 [place] # (Auto) 0.5 (0.0-0.9) th/mm3 Eos # (Auto) 0.1 (0.0-0.4) th/mm3 Baso # (Auto) 0.1 (0.0-0.2) th/mm3 WBC Differential . Differential Comment Auto diff final PT 10.9 (9.8-11.6) sec INR 1.1 Ratio APTT 21.8 L (24.3-30.1) sec D-Dimer Quant (PE/DVT) 0.27 (0.00-0.50) mg/L FEU Sodium 140 (136-145) meq/L Potassium 3.7 (3.5-5.1) meq/L Chloride 110 H (98-107) meq/L Carbon Dioxide 23.4 (21.0-32.0) meq/L Anion Gap 7 (5-15) meq/L BUN 10 (7-18) mg/dL Creatinine 0.89 (0.50-1.00) mg/dL Estimated GFR 69 L (>89) mL/min Random Glucose 79 (74-106) mg/dL Calcium 7.7 L (8.5-10.1) mg/dL Prot Corrected Calcium Magnesium 2.0 (1.5-2.5) mg/dL Total Bilirubin 0.8 (0.2-1.0) mg/dL AST 13 L (15-37) U/L ALT 18 (10-53) U/L Alkaline Phosphatase 38 L (45-117) U/L Total Creatine Kinase 34 (26-192) U/L Troponin I Less than 0.02 L (0.02-0.05) ng/mL B-Natriuretic Peptide (0-100) pg/mL Total Protein 6.3 L (6.4-8.2) g/dL Albumin 3.4 (3.4-5.0) g/dL Lipase 256 (73-393) U/L 03/11/18 03/11/18 Range/Units 03:40 03:40 WBC (4.0-11.0) th/mm3 RBC (4.00-5.30) mil/mm3 Hgb (11.6-15.3) gm/dL Hct (35.0-46.0) % MCV (80.0-100.0) fL MCH (27.0-34.0) pg MCHC (32.0-36.0) % RDW (11.6-17.2) % Plt Count (150-450) th/mm3 MPV (7.0-11.0) fL Neut % (Auto) (16.0-70.0) % Lymph % (Auto) (9.0-44.0) % [place] % (Auto) (0.0-8.0) % Eos % (Auto) (0.0-4.0) % Baso % (Auto) (0.0-2.0) % Neut # (Auto) (1.8-7.7) th/mm3 Lymph # (Auto) (1.0-4.8) th/mm3 [place] # (Auto) (0.0-0.9) th/mm3 Eos # (Auto) (0.0-0.4) th/mm3 Baso # (Auto) (0.0-0.2) th/mm3 WBC Differential Differential Comment PT (9.8-11.6) sec INR Ratio APTT (24.3-30.1) sec D-Dimer Quant (PE/DVT) (0.00-0.50) mg/L FEU Sodium Cancelled (136-145) meq/L Potassium Cancelled (3.5-5.1) meq/L Chloride Cancelled (98-107) meq/L Carbon Dioxide Cancelled (21.0-32.0) meq/L Anion Gap Cancelled (5-15) meq/L BUN Cancelled (7-18) mg/dL Creatinine Cancelled (0.50-1.00) mg/dL Estimated GFR Cancelled (>89) mL/min Random Glucose Cancelled (74-106) mg/dL Calcium Cancelled (8.5-10.1) mg/dL Prot Corrected Calcium Cancelled Magnesium Cancelled (1.5-2.5) mg/dL Total Bilirubin Cancelled (0.2-1.0) mg/dL AST Cancelled (15-37) U/L ALT Cancelled (10-53) U/L Alkaline Phosphatase Cancelled (45-117) U/L Total Creatine Kinase Cancelled (26-192) U/L Troponin I (0.02-0.05) ng/mL B-Natriuretic Peptide 15 (0-100) pg/mL Total Protein Cancelled (6.4-8.2) g/dL Albumin Cancelled (3.4-5.0) g/dL Lipase (73-393) U/L ECG Data Attestation: I personally reviewed and interpreted this ECG as follows: Interpretation: The patient had an EKG done on arrival. The patient's EKG reveals a sinus rhythm heart rate of 78, QRS duration is 90 ms, QTC [address] segment abnormalities are noted, Q waves are noted in V1, V2 T- wave inversion is noted in V2. No acute ST segment elevation is noted. Discharge Plan Discharge Disposition Patient Disposition: 30 Still Patient Physicians Team ED Provider: Deandra Coronado Primary Care Provider: UNKNOWN, Rxs /Orders / Referrals /Forms Prescriptions: No Action multivitamin Liquid 5 ml PO DAILY RF: 0 Discharge Instructions Patient Printed Instructions: Chest Pain (ED) Status ED Status: With Doctor
[2018-03-11 04:15] LABS: Activated Partial Thrombo Time 21.8 sec (24.3-30.1); D-Dimer 0.27 mg/L FEU (0.00-0.50); INR 1.1 Ratio; Prothrombin Time 10.9 sec (9.8-11.6)
[2018-03-11 04:27] LABS: Alanine Aminotransferase 18 U/L (10-53); Albumin 3.4 g/dL (3.4-5.0); Anion Gap 7 meq/L (5-15); Aspartate Aminotransferase 13 U/L (15-37); Blood Urea Nitrogen 10 mg/dL (7-18); Calcium 7.7 mg/dL (8.5-10.1); Carbon Dioxide 23.4 meq/L (21.0-32.0); Chloride 110 meq/L (98-107); Glomerular Filtration Rate 69 mL/min (>89); Glucose,Random 79 mg/dL (74-106); Lipase 256 U/L (73-393); Potassium 3.7 meq/L (3.5-5.1); Sodium 140 meq/L (136-145)
[2018-03-11 04:31] LABS: Alkaline Phosphatase 38 U/L (45-117); Total Protein 6.3 g/dL (6.4-8.2)
[2018-03-11 04:32] LABS: Creatine Kinase 34 U/L (26-192)
[2018-03-11 04:46] VITALS: RESP 16
[2018-03-11] MEDS ORDERED: Acetaminophen 500 MG Tablet PO PRN (05:33)
[2018-03-11] MEDS ORDERED: Sod Chloride 0.9% Inj 1,000 ML IV.CONT SCH (05:45)
[2018-03-11 10:27] LABS: Creatine Kinase 33 U/L (26-192)
--- NOTE | 2018-03-11 13:15 | P.HPCA ---
History of Present Illness Primary Care Physician: UNKNOWN Chief Complaint: Chest pain History of Present Illness: This is a 47-year-old female history of POTS that presents to ED with complaint of chest discomfort. States she developed a discomfort in her chest earlier this morning that lasted 15-20 minutes. She states initially the discomfort was in her back between her shoulder blades but soon later developed a flushing sensation or a tightness in her throat and upper chest. Cannot recall being short of breath, nauseous, or diaphoretic. States she called 9 1 and was brought to the ED. States she has history of POTS and has been doing fine for quite some time however about 2 weeks ago she began doing some training and is drinking a lot of caffeine and believe it triggered a recurrence and she has had issues of tachycardia when she stands up intermittently over the last 2 weeks. States she has checked her pulse with a pulse oximeter and heart rate has been as high as 143. Has appointment with PCP and neurologist. Currently not followed cardiology. Cannot recall prior stress testing. She was seen this hospital and of February for weakness in her legs but declined CT imaging and was to follow-up with PCP. Prior to that visit she was seen in [facility] for similar issues. She states really the differences for the first time, she had chest discomfort this morning. Denies fevers or chills. His only medication she takes his Klonopin which is only recently been taking for anxiety. Denies , states she had hysterectomy. - Diagnosis (1) Chest pain Review of Systems General: Patient denies fevers, chills, and recent travel. HEENT: Patient denies headache, sore throat, difficulty swallowing. Cardiovascular: Has the chest discomfort as mentioned above. Has had intermittently over the last 2 weeks sensation of heart beating rapidly. States she has checked her heart rate with a pulse oximetry and heart rate has been as high as 143. No syncope. Respiratory: Denies shortness of breath or inspirational chest discomfort. Denies coughing wheezing or hemoptysis. GI: Patient denies nausea, vomiting, diarrhea, abdominal pain, bloody stools. Musculoskeletal: Patient denies joint pain or edema. Denies calf pain or edema. Neurovascular: Patient denies numbness, tingling, weakness in extremities. Denies headache. Endocrine: Denies polyuria and polydipsia. Hematologic: Denies easy bruising. Skin: Denies rash or itching. PMFSH - History History Provided By: Patient, [employer] / EMT - Medical History Medical History: Medical History (Last Reviewed 03/11/18 @ 04:50 by Deandra Coronado MD) Irritable bowel syndrome Neuropathy Postural orthostatic tachycardia syndrome Endometriosis Hypothyroidism Mitral valve prolapse Thyroid nodule - Surgical History Surgical History: Surgical History (Last Reviewed 03/11/18 @ 04:50 by Deandra Coronado MD) History of hysterectomy - Family History Family History: Family History (Last Reviewed 03/11/18 @ 04:50 by Deandra Coronado MD) Mother Heart disease - Tobacco History Second Hand Smoke Exposure: No Smoking Status: Never smoker - Alcohol History How Often Do You Have a Drink Containing Alcohol: Never - Substance Use History Substance History: No History of Abuse - Travel History Recent Travel in the [facility] Within the Last 8 Weeks: No - Immunization History Tetanus Immunization: Unsure Medications and Allergies Active Medications: Active Medications Acetaminophen (Tylenol) 500 mg PO Q4H PRN PRN Reason: HEADACHE Sodium Chloride (Ns Inj) 1,000 mls @ 100 mls/hr IV.CONT .Q10H [facility] Last Admin: 03/11/18 06:28 Dose: 100 mls/hr Sodium Chloride (Ns Flush) 2 ml IV.FLUSH UNSCH PRN PRN Reason: FLUSH AFTER USING IV ACCESS Sodium Chloride (Ns Flush) 2 ml IV.FLUSH BID [facility] Last Admin: 03/11/18 12:08 Dose: 2 ml Sodium Chloride (Ns Flush) 2 ml IV.FLUSH PRN PRN PRN Reason: FLUSH AFTER USING IV ACCESS Allergies Allergy/AdvReac Type Severity Reaction Status Date / Time ciprofloxacin Allergy Severe Anaphylaxis Verified 03/11/18 03:39 diphenhydramine Allergy Severe TACHYCARDIA Verified 03/11/18 03:39 Quinolones Allergy Severe AUTONOMIC Verified 03/11/18 03:39 DYSREFLEXIA Home Medications Medication Instructions Recorded Confirmed Type multivitamin 5 ml PO DAILY 03/03/18 03/11/18 History Exam Vital signs: Vital Signs 03/11/18 03:25 03/11/18 03:37 03/11/18 03:43 Temperature 98.2 F Pulse Rate 80 Respiratory Rate 16 Blood Pressure 123/60 Blood Pressure [Right Arm] 107/61 Pulse Oximetry 100 100 03/11/18 03:58 03/11/18 07:47 03/11/18 12:00 Temperature 98.2 F Pulse Rate 84 62 Respiratory Rate 16 16 Blood Pressure 107/58 L 94/55 L Blood Pressure [Right Arm] Pulse Oximetry 100 98 99 Intake & Output 03/10/18 03/11/18 03/11/18 18:59 06:59 18:59 Weight 63.503 kg Narrative: GENERAL: This is a well-nourished, well-developed patient, in no apparent distress. Patient speaks in clear complete sentences. Patient is pleasant. HEENT: Head is atraumatic and normocephalic. Neck is supple without lymphadenopathy and trachea is midline. No JVD or carotid bruits. CARDIOVASCULAR: Regular rate and rhythm without murmurs, gallops, or rubs. RESPIRATORY: Clear to auscultation. Breath sounds equal bilaterally. No wheezes , rales, or rhonchi. Chest wall is nontender. No use of accessory muscles. GASTROINTESTINAL: Abdomen is nontender, nondistended. Abdomen soft. No obvious pulsatile mass or bruit. No CVA tenderness. Strong femoral pulses bilaterally. Normal bowel sounds in all quadrants. MUSCULOSKELETAL: Patient is moving upper and lower extremities freely. No calf tenderness or edema, no Homans sign. Strong pulses in upper and lower extremities. NEUROLOGICAL: Patient is alert and oriented. Cranial nerves 2-12 are grossly intact. No focal deficits and speech is clear. SKIN: No rash and turgor is normal. Results 03/11/18 03:40 03/11/18 03:40 Cardiac Enzymes 03/11/18 03/11/18 03/11/18 Range/Units 03:40 03:40 03:40 AST 13 L Cancelled (15-37) U/L Troponin I Less than 0.02 L (0.02-0.05) ng/mL B-Natriuretic Peptide 15 (0-100) pg/mL 03/11/18 Range/Units 09:24 AST (15-37) U/L Troponin I Less than 0.02 L (0.02-0.05) ng/mL B-Natriuretic Peptide (0-100) pg/mL Coagulation 03/11/18 03/11/18 Range/Units 03:40 03:40 PT 10.9 (9.8-11.6) sec APTT 21.8 L (24.3-30.1) sec B-Natriuretic Peptide 15 (0-100) pg/mL CBC 03/11/18 Range/Units 03:40 WBC 7.3 (4.0-11.0) th/mm3 RBC 4.39 (4.00-5.30) mil/mm3 Hgb 13.4 (11.6-15.3) gm/dL Hct 38.2 (35.0-46.0) % Plt Count 229 (150-450) th/mm3 Neut # (Auto) 5.0 (1.8-7.7) th/mm3 Lymph # (Auto) 1.6 (1.0-4.8) th/mm3 [place] # (Auto) 0.5 (0.0-0.9) th/mm3 Eos # (Auto) 0.1 (0.0-0.4) th/mm3 Baso # (Auto) 0.1 (0.0-0.2) th/mm3 Comprehensive Metabolic Panel 03/11/18 03/11/18 Range/Units 03:40 03:40 Sodium 140 Cancelled (136-145) meq/L Potassium 3.7 Cancelled (3.5-5.1) meq/L Chloride 110 H Cancelled (98-107) meq/L Carbon Dioxide 23.4 Cancelled (21.0-32.0) meq/L BUN 10 Cancelled (7-18) mg/dL Creatinine 0.89 Cancelled (0.50-1.00) mg/dL Calcium 7.7 L Cancelled (8.5-10.1) mg/dL AST 13 L Cancelled (15-37) U/L ALT 18 Cancelled (10-53) U/L Alkaline Phosphatase 38 L Cancelled (45-117) U/L Total Protein 6.3 L Cancelled (6.4-8.2) g/dL Albumin 3.4 Cancelled (3.4-5.0) g/dL Intake and Output 03/10/18 03/11/18 03/11/18 22:59 06:59 14:59 Other: Weight 63.503 kg EKG interpretations - EKG EKG shows: sinus rhythm (EKGs have been sinus rhythm without significant ST segment depressions or elevations.) Caprini VTE Risk Assessment Caprini VTE Risk Assessment: No/Low Risk (score <= 1) Caprini Risk Assessment Model: Point Value = 1 Point Value = 2 Point Value = 3 Point Value = 5 Age 41-60 Minor surgery BMI > 25 kg/m2 Swollen legs Varicose veins or History of unexplained or recurrent spontaneous Oral contraceptives or hormone replacement Sepsis (< 1 month) Serious lung disease, including pneumonia (< 1 month) Abnormal pulmonary function Acute myocardial infarction Congestive heart failure (< 1 month) History of inflammatory bowel disease Medical patient at bed rest Age 61-74 Arthroscopic surgery Major open surgery (> 45 min) Laparoscopic surgery (> 45 min) Malignancy Confined to bed (> 72 hours) Immobilizing plaster cast Central venous access Age >= 75 History of VTE Family history of VTE Factor V Leiden Prothrombin [id number] Lupus anticoagulant Anticardiolipin antibodies Elevated serum homocysteine Heparin-induced thrombocytopenia Other congenital or acquired thrombophilia Stroke (< 1 month) Elective arthroplasty Hip, pelvis, or leg fracture Acute spinal cord injury (< 1 month) Prophylaxis Regimen: Total Risk Factor Score Risk Level Prophylaxis Regimen 0-1 Low Early ambulation 2 Moderate Order ONE of the following: *Sequential Compression Device (SCD) *Heparin 5000 units SQ BID 3-4 Higher Order ONE of the following medications: *Heparin 5000 units SQ TID *Enoxaparin/Lovenox 40 mg SQ daily (WT < 150 kg, CrCl > 30 mL/min) *Enoxaparin/Lovenox 30 mg SQ daily (WT < 150 kg, CrCl > 10-29 mL/min) *Enoxaparin/Lovenox 30 mg SQ BID (WT < 150 kg, CrCl > 30 mL/min) AND/OR *Sequential Compression Device (SCD) 5 or more Highest Order ONE of the following medications: *Heparin 5000 units SQ TID (Preferred with Epidurals) *Enoxaparin/Lovenox 40 mg SQ daily (WT < 150 kg, CrCl > 30 mL/min) *Enoxaparin/Lovenox 30 mg SQ daily (WT < 150 kg, CrCl > 10-29 mL/min) *Enoxaparin/Lovenox 30 mg SQ BID (WT < 150 kg, CrCl > 30 mL/min) AND *Sequential Compression Device (SCD) Assessment and Plan - Assessment (1) Chest pain Code(s): R07.9 - Chest pain, unspecified Status: Acute - Plan * Chest pain: Patient has had serial cardiac enzymes and EKGs for ruling out purposes. She will be seen by Dr. Snyder of cardiology in the chest pain center. I discussed with the patient the next step would be stress testing however she is declining this at this time. We will ask again the patient states she does not want to have a stress test. States she would prefer to follow-up with her PCP. Patient states that she has history of POTS, she is to follow-up with her physician regarding this. Patient should return to ED for interval issues.
[2018-03-11 23:19] VITALS: BP 94/51; PULSE 74; TEMP 98; O2SAT 100
--- NOTE | 2018-03-12 08:39 | ECG ---
Date Performed: 03/11/2018 Time Performed: 09:26:30 PTAGE: 47 years EKG: Sinus rhythm WITH SINUS ARRHYTHMIA ABNORMAL ECG PREVIOUS TRACING : 03/11/2018 03.27 Since previous tracing, no significant change noted DOCTOR: Gustavo Loyola Interpretating Date/Time 03/12/2018 08:38:41
--- NOTE | 2018-03-12 08:39 | ECG ---
Date Performed: 03/11/2018 Time Performed: 03:27:06 PTAGE: 47 years EKG: Sinus rhythm POSSIBLE LEFT ATRIAL ENLARGEMENT INDETERMINATE AXIS LOW QRS VOLTAGE IN PRECORDIAL LEADS ABNORMAL ECG PREVIOUS TRACING : 03/03/2018 11.44 Since previous tracing, no significant change noted DOCTOR: Gustavo Loyola Interpretating Date/Time 03/12/2018 08:39:03
== END 2018-03-11 18:39 | disposition home or self-care (01) ==
LOC: NEPHCDU 03:10 → NEDA 03:10 → NEPC 03:10 → NEDA 09:40 → NEPHCDU 09:47
PROVIDERS: ADMIT Internal Medicine Interventional Cardiology; ATTEND Internal Medicine Interventional Cardiology
DX: E04.1 Nontoxic single thyroid nodule; I34.1 Nonrheumatic mitral (valve) prolapse; G62.9 Polyneuropathy, unspecified; I49.8 Other specified cardiac arrhythmias; E03.9 Hypothyroidism, unspecified; F41.9 Anxiety disorder, unspecified; R07.89 Other chest pain; K58.0 Irritable bowel syndrome with diarrhea